=== PATIENT | female | born 1995 | race African-American/Black ===

== ENCOUNTER 2016-11-30 22:15 | Emergency (ER) | payer BC, OTHER ==
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
[~2016-11-30 22:15] MED LIST: NO MEDICATIONS
== END 2016-12-01 00:34 | disposition home or self-care (01) ==
LOC: SED 22:15
DX: S01.412A Laceration without foreign body of left cheek and temporomandibular area, initial encounter (principal); F17.210 Nicotine dependence, cigarettes, uncomplicated; Y04.2XXA Assault by strike against or bumped into by another person, initial encounter; Y92.009 Unspecified place in unspecified non-institutional (private) residence as the place of occurrence of the external cause
CPT/HCPCS: 12011; 70486; 99284